=== PATIENT | male | born 1995 | race Caucasian/White ===

== ENCOUNTER 2022-12-24 10:06 | Emergency (ER) | payer OTHER, SELFPAY ==
[2022-12-24 10:10] VITALS: BP 103/75; PULSE 60; RESP 16; TEMP 36.6; O2SAT 98; BMI 27.1
--- NOTE | 2022-12-24 10:19 | DI.RAD.S_ITS ---
PROCEDURE: XR LUMBAR SPINE 2-3V INDICATIONS: bilateral lower leg pain, positional TECHNIQUE: 3 views of the lumbar spine were acquired. COMPARISON: None. FINDINGS: Bones: 5 [id number] vertebrae are present. There is normal bony alignment. No vertebral body compression fractures. No suspicious bony lesions. Mild disc space narrowing can be seen at the L5-S1 level. The disc heights otherwise appear well-preserved. Soft tissues: Overlying bowel gas pattern is normal. No suspicious soft tissue calcifications. IMPRESSION: Mild focal L5-S1 disc space narrowing, without additional significant seen by plain film. If it would be helpful for clinical management decision making, please consider a dedicated, scheduled lumbar spine MRI for further evaluation (assuming that there is no contraindication). Dictated by: Horacio Kitchen M.D. on 12/24/2022 at 9:46 Approved by: Horacio Kitchen M.D. on 12/24/2022 at 9:46
[2022-12-24] MEDS: IBUPROFEN 400 MG TABLET 800 MG PO (10:22)
--- NOTE | 2022-12-24 10:56 | ED_ITS ---
HPI - Extremity Problem General Chief complaint: Extremity Problem,Nontraumatic Stated complaint: leg pain/ both Time Seen by Provider: 12/24/22 10:10 History of Present Illness HPI Narrative: 27-year-old male without any chronic medical history presents with a chief complaint of pain in both of his lower legs over the past day or 2. He denies any injury, no swelling, redness or other abnormality. He denies any trauma. He states that it seems to be worse when he is lying down or flattened seems to improve when he is up and walking. He denies any numbness, tingling or weakness. He denies fever or chills and does not use blood thinners. He denies loss of control of bowel or bladder. He is otherwise well and free of complaint Related Data Previous Rx's Medication Instructions Recorded ketorolac 10 mg tablet 10 mg PO Q6H PRN pain #14 tabs 12/24/22 methylprednisolone 4 mg tablets in See Rx Instructions PO .COMPLEX 12/24/22 a dose pack (Medrol (Jason)) #21 ea Allergies Allergy/AdvReac Type Severity Reaction Status Date / Time No Known Drug Allergies Allergy Verified 12/24/22 11:00 Review of Systems Review of Systems Narrative: GENERAL: Denies chills, fatigue, malaise, fever, sweats. HEENT: Denies sinus pain, ear pain, sore throat, difficulty swallowing, dizziness. RESPIRATORY: Denies dyspnea, cough, wheezing, hemoptysis, sputum. CARDIOVASCULAR: Denies chest pain, palpitations, orthopnea, edema, GASTROINTESTINAL: Denies nausea, vomiting, abdominal pain, diarrhea, constipation, melena. : Denies dysuria, frequency, incontinence, hematuria, urinary retention. MUSCULOSKELETAL: See HPI SKIN: Denies rash, skin lesions, or other NEUROLOGIC: See HPI PSYCHIATRIC: No concerning psychosocial issues. 12 point review of systems is negative except for those stated above Exam Narrative Exam Narrative: GENERAL: [27] year old patient appears stated age. Well-developed patient, in mild distress. HEAD: Atraumatic. Normocephalic. EYES: Pupils equal round and reactive. Extraocular motions intact. No scleral icterus. No injection or drainage. ENT: Nose without bleeding, purulent drainage. Throat without erythema, tonsillar hypertrophy or exudate. Airway patent. NECK: Trachea midline. Non tender CARDIOVASCULAR: Regular rate and rhythm without murmurs, gallops, or rubs. RESPIRATORY: Clear to auscultation. Breath sounds equal bilaterally. No wheezes, rales, or rhonchi. GASTROINTESTINAL: Abdomen soft, non-tender, nondistended. EXTREMITIES: No edema or joint tenderness. BACK: Back not tender and free of any obvious external abnormalities. Patient exam notes full range of motion and no muscle spasm, no CVA tenderness, or vertebral point tenderness. There are no symptoms of cauda equina such as saddle anesthesia, and decreased reflexes, decreased sensation or strength. NEURO: AOx3. SKIN: No rash or erythema of visible areas Initial Vital Signs Initial Vital Signs: Vital Signs Temperature 97.9 F 12/24/22 10:10 Pulse Rate 60 12/24/22 10:10 Respiratory Rate 16 12/24/22 10:10 Blood Pressure 103/75 12/24/22 10:10 Pulse Oximetry 98 12/24/22 10:10 Oxygen Delivery Method Room Air 12/24/22 10:10 Course Orders Ordered: ED Orders 12/24/22 10:19 XR lumbar spine 2-3V Stat Discontinued Medications Ibuprofen (Ibuprofen 400 Mg Tablet) 800 mg PO NOW ONE Stop: 12/24/22 10:20 Last Admin: 12/24/22 10:22 Dose: 800 mg Documented By: CTS Vital Signs Vital signs: Vital Signs - 8 hr 12/24/22 10:10 Temperature 97.9 F Pulse Rate 60 Respiratory Rate 16 Blood Pressure 103/75 Pulse Oximetry 98 Oxygen Delivery Method Room Air MDM - Extremity (Nontraumatic) MDM Narrative Medical decision making narrative: [27] year old patient presents with bilateral lower extremity pain and on 2nd thought he mentions that he had had some episodes of tingling Multiple etiologies for patient's symptoms considered including, but not limited to: [Lumbar radiculopathy versus cauda equina versus epidural hematoma versus abscess versus cellulitis versus DVT versus other] Prior Charts reviewed in our EMR Primary Historian: patient Imaging reviewed: Mild focal L5-S1 disc space narrowing without additional abnormal findings Patient's history and physical exam are reassuring. He is got pain in his lower extremities in the absence of any trauma or injury. The pain does not worsen with palpation or with walking but in fact improves. He has no redness or swelling. No evidence of redness or swelling to suggest infectious process or DVT. No reproducible pain on palpation. Concern for radicular type symptoms but no evidence of cauda equina or epidural abscess. Patient's symptoms improved over duration of stay with above-stated therapies. Findings and discharge diagnosis discussed with patient/family followed by verbalization of understanding Return precautions discussed with patient/family whom verbalize understanding of diagnosis and plan Discharge Plan Departure Patient Disposition: Home Clinical Impression: Bilateral leg pain, Bilateral lumbar radiculopathy Instructions: DI for Leg Pain Activity Restrictions/Additional Instructions: *You have been diagnosed with [bilateral leg pain. As we discussed your history and physical exam is reassuring and there is no sign of blood clot or infection. You do have some evidence of narrowing of the disc space in your lower back which could be contributing to your symptoms.] *What to do: *Please continue to take your regular medications as directed. [x ] New medication prescriptions sent to your pharmacy: [ DOD] [ ] New medication written as a paper prescription [ ] No new medications given *Please follow up with your primary care provider in 2-3 days, call for an appointment. Let them know you were seen in the Emergency Department and that we ask that you be seen in follow up. We will electronically transmit a record of today's note if your PCP is in our system *If you do not have a primary care provider please contact the [facility] Resource line at [phone]. They will ask some questions about your medical history and help get you set up with a doctor in the community. *Return to Emergency Department if you should have any new, worsening or conc erning symptoms, such as [fever greater than 101 F, shaking chills, worsening pain, persistent vomiting or other bothersome symptoms] Prescriptions: New ketorolac 10 mg tablet 10 mg PO Q6H PRN (Reason: pain) Qty: 14 0RF methylprednisolone [Medrol (Jason)] 4 mg tablets,dose pack See Rx Instructions .ROUTE .COMPLEX Qty: 21 0RF Rx Instructions: orally per package directions Referrals: Jd Lopes MD [Physician] - Stand Alone Forms: Patient Portal/API, Work Release Note
== END 2022-12-24 11:09 | disposition home or self-care (01) ==
PROVIDERS: Emergency Provider Emergency Medicine
DX: M54.16 Radiculopathy, lumbar region (principal); M79.605 Pain in left leg; M79.604 Pain in right leg
CPT/HCPCS: 72100; 99283

== ENCOUNTER 2024-08-28 23:41 | Emergency (ER) | payer OTHER, SELFPAY ==
[2024-08-28 23:45] VITALS: BP 138/90; PULSE 71; RESP 16; TEMP 36.3; O2SAT 98; BMI 26.4
--- NOTE | 2024-08-28 23:53 | DI.CT.S_ITS ---
PROCEDURE: CT ABDOMEN PELVIS W CON INDICATIONS: left pelvic pain with testicular swelling TECHNIQUE: After the administration of intravenous contrast, axial sections acquired from the lung bases to the pubic symphysis. Coronal and sagittal reformats were performed. For radiation dose reduction, the following was used: automated exposure control, adjustment of mA and/or kV according to patient size. COMPARISON: None. FINDINGS: Image quality: Diagnostic. Lower Chest: No significant findings. ABDOMEN: Liver: Subtle hypodensity in the right liver. Difficult to further characterize given its small size. Favor benign etiology such as cyst or hemangioma. Gallbladder: No radiopaque gallstones or wall thickening. Biliary ducts: No biliary dilation. Pancreas: No ductal dilation. Spleen: Size is within normal limits. Adrenal Glands: No adrenal nodules. Kidneys and Ureters: No hydronephrosis. No solid mass. No complex renal cystic lesion which requires follow up. Stomach and Bowel: Normal colonic caliber, without significant wall thickening. Normal appendix. Peritoneum: No abnormal intraperitoneal fluid. No free air. Ventral Wall: No significant ventral hernia. Abdominal Nodes: No retroperitoneal or mesenteric adenopathy by size criteria. Vessels: Aorta and inferior vena cava are normal in size. PELVIS: Pelvic Organs: Unremarkable. Bladder: No bladder wall thickening, accounting for underdistention. Pelvic Nodes: No enlarged lymph nodes. Miscellaneous: No inguinal hernias are seen. Bones: No aggressive osseous abnormality. IMPRESSION: No acute abnormality identified. No free fluid. No adenopathy. Consider scrotal ultrasound. Dictated by: Jose Martinez M.D. on 08/29/2024 at 2:32 Approved by: Jose Martinez M.D. on 08/29/2024 at 2:36
[2024-08-29 00:08] LABS: Add Manual Diff / Slide Review NO; Basophils Absolute Auto 0 /uL (0-100); Basophils Percent Auto 0.2 % (0-2); Eosinophils Absolute Auto 100 /uL (0-450); Eosinophils Percent Auto 1.5 % (2-4); Hematocrit 42.4 % (41-53); Hemoglobin 14.7 g/dL (13.5-17.5); Lymphocytes Absolute Auto 2000 /uL (1100-4500); Lymphocytes Percent Auto 24.4 % (25-40); Mean Corpuscular HGB Conc 34.8 % (30-36); Mean Corpuscular Hemoglobin 31.1 PG (26-34); Mean Corpuscular Volume 89.5 fL (80-100); Monocytes Absolute Auto 600 /uL (0-900); Monocytes Percent Auto 7.7 % (3-14); Neutrophils Absolute Auto 5400 /uL (1500-7000); Neutrophils Percent Auto 66.2 % (50-75); Platelet Count 216 X10^3/uL (150-400); Red Blood Cell Count 4.73 X10^6/uL (4.5-5.9); Red Cell Distribution Width 13.6 % (11.6-14.8); White Blood Cell Count 8.2 X10^3/uL (4.5-11.0)
[2024-08-29 00:17] LABS: Alanine Aminotransferase 26 IU/L (<50); Albumin 4.8 g/dL (3.5-5.0); Alkaline Phosphatase 74 U/L (38-126); Aspartate Aminotransferase 25 IU/L (17-59); BUN Creatinine Ratio 21.4 (6-22); Bilirubin Total 0.7 mg/dL (0.2-1.3); Blood Urea Nitrogen 22 mg/dL (9-20); Calcium 9.4 mg/dL (8.4-10.2); Carbon Dioxide 24 mmol/L (22-32); Chloride 107 mmol/L (98-107); Estimated Glomerular Filt Rate > 60 mL/min (>60); Globulin 2.4 g/dL (1.7-4.1); Glucose 103 mg/dL (70-99); HEMOLYSIS < 15 (0-50); Potassium 3.7 mmol/L (3.4-5.1); Sodium 140 mmol/L (137-145); Total Protein 7.2 g/dL (6.3-8.2)
[2024-08-29 02:26] VITALS: PULSE 58; O2SAT 98
[2024-08-29 02:27] VITALS: BP 120/82; PULSE 54; O2SAT 98
[2024-08-29 02:30] VITALS: PULSE 60; O2SAT 98
[2024-08-29 03:00] VITALS: PULSE 47; RESP 18; O2SAT 97
--- NOTE | 2024-08-29 03:08 | ED_ITS ---
HPI - Male Genitourinary General Chief complaint: Urogenital-Male Stated complaint: groin injury at gym today Time Seen by Provider: 08/29/24 02:20 Source: patient Mode of arrival: Ambulatory History of Present Illness HPI Narrative: 29-year-old gentleman with no significant medical or surgical history history was working out earlier tonight to and sit-ups and crunches we noticed he started to have lower abdominal pain and noticed that his left testicle became swollen and painful and came in to be evaluated. He is able to void any denies any abdominal pain, back pain, hematuria, penile discharge, or any other trauma to the area. Other than what is stated 14 point review of system is negative. Related Data Previous Rx's Medication Instructions Recorded ketorolac 10 mg tablet 10 mg PO Q6H PRN pain #14 tabs 12/24/22 methylprednisolone 4 mg tablets in See Rx Instructions PO .COMPLEX 12/24/22 a dose pack (Medrol (Jason)) #21 ea Allergies Allergy/AdvReac Type Severity Reaction Status Date / Time No Known Drug Allergies Allergy Verified 12/24/22 11:00 Review of Systems Review of Systems ROS Unobtainable: All systems reviewed & are unremarkable except as noted in HPI and below Patient History Social History Smoking Status: Current every day smoker Smoking Status: Current every day smoker Exam Narrative Exam Narrative: GENERAL: [29] year old patient appears stated age. Well-developed patient, in mild distress. HEAD: Atraumatic. Normocephalic. EYES: Pupils equal round and reactive. Extraocular motions intact. No scleral icterus. No injection or drainage. ENT: Nose without bleeding, purulent drainage. Throat without erythema, tonsillar hypertrophy or exudate. Airway patent. NECK: Trachea midline. Non tender CARDIOVASCULAR: Regular rate and rhythm without murmurs, gallops, or rubs. RESPIRATORY: Clear to auscultation. Breath sounds equal bilaterally. No wheezes, rales, or rhonchi. GASTROINTESTINAL: Abdomen soft, non-tender, nondistended. : Uncircumcised, L testicular mild epididmysis ttp, scrotum nml exam, both testicles descended no signs of torsion or abnormal lie EXTREMITIES: No edema or joint tenderness. BACK: Nontender without deformity or crepitance. No flank tenderness. NEURO: AOx3. SKIN: No rash or erythema of visible areas Initial Vital Signs Initial Vital Signs: Vital Signs Temperature 97.4 F L 08/28/24 23:45 Pulse Rate 71 08/28/24 23:45 Respiratory Rate 16 08/28/24 23:45 Blood Pressure 138/90 08/28/24 23:45 Pulse Oximetry 98 08/28/24 23:45 Oxygen Delivery Method Room Air 08/28/24 23:45 Course Orders Ordered: ED Orders 08/28/24 23:53 CT abdomen pelvis w con Stat 08/29/24 03:11 US scrotum Stat Vital Signs Vital signs: Vital Signs - 8 hr 08/28/24 23:45 08/29/24 02:26 08/29/24 02:27 Temperature 97.4 F L Pulse Rate 71 58 L Respiratory Rate 16 Blood Pressure 138/90 120/82 Pulse Oximetry 98 98 Oxygen Delivery Method Room Air 08/29/24 02:27 08/29/24 02:30 08/29/24 03:00 Temperature Pulse Rate 54 L 60 47 L Respiratory Rate 18 Blood Pressure Pulse Oximetry 98 98 97 Oxygen Delivery Method MDM - Male Genitourinary Lab Data 08/28/24 00:00 08/28/24 00:00 Labs: Lab Results 08/28/24 Range/Units 00:00 WBC 8.2 (4.5-11.0) X10^3/uL RBC 4.73 (4.5-5.9) X10^6/uL Hgb 14.7 (13.5-17.5) g/dL Hct 42.4 (41-53) % MCV 89.5 (80-100) fL MCH 31.1 (26-34) PG MCHC 34.8 (30-36) % RDW 13.6 (11.6-14.8) % Plt Count 216 (150-400) X10^3/uL Neut % (Auto) 66.2 (50-75) % Lymph % (Auto) 24.4 L (25-40) % Mclennan % (Auto) 7.7 (3-14) % Eos % (Auto) 1.5 L (2-4) % Baso % (Auto) 0.2 (0-2) % Neut # (Auto) 5400 (5432-6279) /uL Lymph # (Auto) 2000 (4558-1195) /uL Mclennan # (Auto) 600 (0-900) /uL Eos # (Auto) 100 (0-450) /uL Baso # (Auto) 0 (0-100) /uL Sodium 140 (137-145) mmol/L Potassium 3.7 (3.4-5.1) mmol/L Chloride 107 (98-107) mmol/L Carbon Dioxide 24 (22-32) mmol/L BUN 22 H (9-20) mg/dL Creatinine 1.03 (0.66-1.25) mg/dL Estimated GFR > 60 (>60) mL/min BUN/Creatinine Ratio 21.4 (6-22) Glucose 103 H (70-99) mg/dL Calcium 9.4 (8.4-10.2) mg/dL Total Bilirubin 0.7 (0.2-1.3) mg/dL AST 25 (17-59) IU/L ALT 26 (<50) IU/L Alkaline Phosphatase 74 (38-126) U/L Total Protein 7.2 (6.3-8.2) g/dL Albumin 4.8 (3.5-5.0) g/dL Globulin 2.4 (1.7-4.1) g/dL Albumin/Globulin Ratio 2.0 (1.0-2.8) Urine Dip Bedside Urine Glucose Negative Bedside Urine Bilirubin - Negative Bedside Urine Ketone - Negative Urine Specific Randolph 1.020 Bedside Urine Occult Blood - Negative Bedside Urine pH 6.0 Bedside Urine Protein - Negative Bedside Urine Urobilinogen - Negative Bedside Urine Nitrite - Negative Bedside Urine Leukocytes - Negative Esterase Imaging Data CT scan - abdomen/pelvis: Radiologist's Impression: [place] [address] CT Scan Report Signed Patient: Herbert Bhakta MR#: [id number] : 1995 Acct:[id number] Age/Sex: 29 / M Date of Service: 08/28/24 Loc: ED Accession Number: [id number] Procedure: CT abdomen pelvis w con Ordering Provider: Lebron Moseley D.O. PROCEDURE: CT ABDOMEN PELVIS W CON INDICATIONS: left pelvic pain with testicular swelling TECHNIQUE: After the administration of intravenous contrast, axial sections acquired from the lung bases to the pubic symphysis. Coronal and sagittal reformats were performed. For radiation dose reduction, the following was used: automated exposure control, adjustment of mA and/or kV according to patient size. COMPARISON: None. FINDINGS: Image quality: Diagnostic. Lower Chest: No significant findings. ABDOMEN: Liver: Subtle hypodensity in the right liver. Difficult to further characterize given its small size. Favor benign etiology such as cyst or hemangioma. Gallbladder: No radiopaque gallstones or wall thickening. Biliary ducts: No biliary dilation. Pancreas: No ductal dilation. Spleen: Size is within normal limits. Adrenal Glands: No adrenal nodules. Kidneys and Ureters: No hydronephrosis. No solid mass. No complex renal cystic lesion which requires follow up. Stomach and Bowel: Normal colonic caliber, without significant wall thickening. Normal appendix. Peritoneum: No abnormal intraperitoneal fluid. No free air. Ventral Wall: No significant ventral hernia. Abdominal Nodes: No retroperitoneal or mesenteric adenopathy by size criteria. Vessels: Aorta and inferior vena cava are normal in size. PELVIS: Pelvic Organs: Unremarkable. Bladder: No bladder wall thickening, accounting for underdistention. Pelvic Nodes: No enlarged lymph nodes. Miscellaneous: No inguinal hernias are seen. Bones: No aggressive osseous abnormality. IMPRESSION: No acute abnormality identified. No free fluid. No adenopathy. Consider scrotal ultrasound. Dictated by: Jose Martinez M.D. on 08/29/2024 at 2:32 Approved by: Jose Martinez M.D. on 08/29/2024 at 2:36 MDM Narrative Medical decision making narrative: All lab work vital signs nurse triage note medication list and all imaging studies and all previous ER visits reviewed. Differential diagnosis includes hernia, groin strain, hydrocele, varicocele, torsion, UTI, STD. Patient will take Tylenol or ibuprofen as needed and return with new or worsening symptoms. Discharge Plan Departure Patient Disposition: Home Clinical Impression: Left testicular pain Instructions: DI for Testicular Pain Activity Restrictions/Additional Instructions: Return with new or worsening symptoms. Alternate Tylenol and ibuprofen for pain control. Follow up with PCP in 1-2 weeks if no improvement in symptoms. Prescriptions: No Action ketorolac 10 mg tablet 10 mg PO Q6H PRN (Reason: pain) Qty: 14 0RF methylprednisolone [Medrol (Jason)] 4 mg tablets,dose pack See Rx Instructions .ROUTE .COMPLEX Qty: 21 0RF Rx Instructions: orally per package directions Stand Alone Forms: Patient Portal/API/Survey
--- NOTE | 2024-08-29 03:11 | DI.US.S_ITS ---
PROCEDURE: US SCROTUM INDICATIONS: per ct scan recommendation. Scrotal swelling. TECHNIQUE: Real-time scanning was performed of the scrotum and testicles, with image documentation. Color and pulse Doppler interrogation was performed of both testicles. COMPARISON: None. FINDINGS: Right: Testicle is normal in size at 4.5 x 2.5 x 3.3 cm, and homogenous in echotexture. Epididymis is normal in overall size and morphology. No hydrocele or varicoceles. Overlying scrotal skin is normal in thickness. Left: Testicle is normal in size at 5.1 x 2.6 x 2.3 cm, and homogeneous in echotexture. Epididymis is normal in overall size and morphology. No hydrocele or varicoceles. Overlying scrotal skin is normal in thickness. Doppler: Color and pulse Doppler demonstrate normal and symmetric arterial flow in both testicles. IMPRESSION: Normal testicular ultrasound. Agree with preliminary report. Dictated by: Addison Martines M.D. on 08/29/2024 at 8:42 Approved by: Addison Martines M.D. on 08/29/2024 at 8:43
[2024-08-29 03:30] VITALS: PULSE 63; RESP 18; O2SAT 99
[2024-08-29 05:53] LABS: Urine N gonorrhoeae NOT DETECTED
[2024-08-29 05:56] LABS: Urine Chlamydia NOT DETECTED
== END 2024-08-29 04:25 | disposition home or self-care (01) ==
PROVIDERS: Emergency Provider Family Medicine
DX: N50.812 Left testicular pain (principal); R10.30 Lower abdominal pain, unspecified; N50.89 Other specified disorders of the male genital organs
CPT/HCPCS: 36415; 74177; 76870; 80053; 81003; 85025; 87491; 87591; 93975; 99283; 99284; Q9967

== ENCOUNTER 2024-11-10 18:06 | Emergency (ER) | payer OTHER, SELFPAY ==
[2024-11-10 18:36] VITALS: BP 111/68; PULSE 57; RESP 17; TEMP 36.7; O2SAT 99; BMI 26.4
--- NOTE | 2024-11-10 21:39 | ED_ITS ---
HPI - Wound/Laceration General Chief Complaint: Wound/Laceration Stated Complaint: Right hand pointer finger laceration Time Seen by Provider: 11/10/24 19:23 Source: patient Mode of arrival: Ambulatory History of Present Illness HPI narrative: 29-year-old male presents with right index finger laceration after using knife to cut crab cake by accident. His tetanus is up-to-date. He is able to move his finger in all directions. Other than what is stated 14 point review of systems negative. Related Data Previous Rx's ?Medication ?Instructions ?Recorded ketorolac 10 mg tablet 10 mg PO Q6H PRN pain #14 ta bs 12/24/22 methylprednisolone 4 mg tablets in See Rx Instructions PO .COMPLEX 12/24/22 a dose pack (Medrol (Jason)) #21 ea Allergies Allergy/AdvReac Type Severity Reaction Status Date / Time No Known Drug Allergies Allergy Verified 11/10/24 18:36 Review of Systems Review of Systems ROS Unobtainable: All systems reviewed & are unremarkable except as noted in HPI and below Patient History Social History Smoking Status: Current some day smoker Smoking Status: Current some day smoker tobacco type: cigars Exam Narrative Exam Narrative: GENERAL: [29] year old patient appears stated age. Well-developed patient, in mild distress. HEAD: Atraumatic. Normocephalic. EYES: Pupils equal round and reactive. Extraocular motions intact. No scleral icterus. No injection or drainage. EXTREMITIES: No edema or joint tenderness. L index finger DIP dorsal oval shape superficial flap laceration 0.25 x 0.25cm motor/sensory intact +2 rad pulse cap refill <2secs BACK: Nontender without deformity or crepitance. No flank tenderness. NEURO: AOx3. SKIN: No rash or erythema of visible areas Initial Vital Signs Initial Vital Signs: Vital Signs Temperature 98.0 F 11/10/24 18:36 Pulse Rate 57 L 11/10/24 18:36 Respiratory Rate 17 11/10/24 18:36 Blood Pressure 111/68 11/10/24 18:36 Pulse Oximetry 99 11/10/24 18:36 Oxygen Delivery Method Room Air 11/10/24 18:36 Procedures Laceration Repair Laceration 1: Time of procedure: 00:00 Site: hand Side (If applicable): right Size (cm): 0.25 Description: flap Depth: simple, single layer Local Anesthetic: lidocaine 1% and with epi Amount of anesthesia used (mL): 1 Pre-repair: wound explored Skin layer closed with: nylon Skin layer suture size: 5-0 Number of sutures: 4 Technique: simple, interrupted Course Vital Signs Vital signs: Vital Signs - 8 hr 11/10/24 18:36 11/10/24 23:34 Temperature 98.0 F Pulse Rate 57 L 55 L Respiratory Rate 17 16 Blood Pressure 111/68 133/83 Pulse Oximetry 99 100 Oxygen Delivery Method Room Air MDM - Wound/Laceration MDM Narrative Medical decision making narrative: Vital signs, nurse triage note, medication list, previous ER visits, and all imaging study reviewed. Four stitches single interrupted using 6 0 nylon x1 packet, bacitracin ointment apply to affected area. Tetanus is already up-to-date. Patient will follow up with PCP for suture removal in 10 days. Differential diagnosis laceration, foreign body, cellulitis, tetanus. Discharge Plan Departure Patient Disposition: Home Clinical Impression: Finger laceration Qualifiers: Encounter type: initial encounter Finger: index finger Damage to nail status: without damage Foreign body presence: without foreign body Laterality: right Qualified Code(s): S61.210A - Laceration without foreign body of right index finger without damage to nail, initial encounter Instructions: DI for Laceration Repair Activity Restrictions/Additional Instructions: Return with new or worsening symptoms. Follow up with PCP in 10 days for suture removal. Prescriptions: No Action ketorolac 10 mg tablet 10 mg PO Q6H PRN (Reason: pain) Qty: 14 0RF methylprednisolone [Medrol (Jason)] 4 mg tablets,dose pack See Rx Instructions .ROUTE .COMPLEX Qty: 21 0RF Rx Instructions: orally per package directions Referrals: Miscellaneous,Doctor, [Primary Care Provider, Medical] Stand Alone Forms: Patient Portal/API
--- NOTE | 2024-11-10 23:29 | PC.NURSE ---
pt was using a sharp knife to cut crab and accidentally sliced his finger, laceration to the tip of the 2nd digit noted scabbed over no active bleeding at present edges approximated
[2024-11-10 23:34] VITALS: BP 133/83; PULSE 55; RESP 16; O2SAT 100
[2024-11-11] MEDS: BACITRACIN OINT 0.9 GM PCKT 1 APPLIC TOP (00:01)
--- NOTE | 2024-11-11 00:10 | PC.NURSE ---
bacitracin applied and wound wrapped with rasheed murillo
== END 2024-11-11 00:11 | disposition home or self-care (01) ==
PROVIDERS: Emergency Provider Family Medicine
DX: S61.210A Laceration without foreign body of right index finger without damage to nail, initial encounter (principal); W26.0XXA Contact with knife, initial encounter
CPT/HCPCS: 12001; 99283